=== PATIENT | female | born 1940 | race Caucasian/White ===

== ENCOUNTER → 2024-03-07 14:04 | Outpatient (REF) | payer MEDICARE, SELFPAY | LOC: RCS 14:04 | PROVIDERS: ATTENDING PHYSICIAN Internal Medicine Cardiovascular Disease; FAMILY PHYSICIAN Family Medicine | DX: R06.02 Shortness of breath (principal); R60.9 Edema, unspecified | CPT/HCPCS: 93306 ==

== ENCOUNTER 2024-07-29 10:22 | Emergency (ER) | payer MEDICARE, SELFPAY ==
[2024-07-29 10:24] VITALS: BP 141/67
--- NOTE | 2024-07-29 11:03 | ED.GENMED ---
History of Present Illness
General
Chief Complaint: Fall
Source: patient
Exam Limitations: none
Time Seen by Provider: 07/29/24 10:45
Nursing documentation reviewed up to this point in time: agreed with
History of Present Illness
History of Present Illness:
84-year-old female with history hypertension presenting 10 days following mechanical fall with persistent left knee pain. Patient states she sustained a trip and fall approximately 10 days ago landing on her left knee. Patient denies any loss of
consciousness. Patient is not on any blood thinners. Patient does have pain in her left knee worse with movement. Patient has been able to ambulate independently with mild discomfort. Patient denies any numbness/tingling in left lower extremity.
Patient denies any headache, neck pain, abdominal pain, or other extremity pain.
Patient has only been using CBD ointment for pain and knee.
Past History
Past History
ED Past Medical History: None and Other (chronic right shoulder pain with mildly limited ROM. Had MRI which showed a tear a couple of years ago but never addressed past then.)
ED Past Surgical History: None
Social History
Tobacco: Former smoker
Personal:
Living: alone
Employment: Employed ([employer])
Review of Systems
Review of Systems
Allergies reviewed?: Yes
All Other Systems: ROS reviewed and negative except as documented in HPI and ROS
Phy Exam
Physical Exam
Physical Exam:
Vitals: Patient's vital signs are stable. Afebrile
General: Patient is well appearing, no acute distress
Skin: Warm and dry, no rashes or lesions. No ecchymoses or abrasions.
Head: Normocephalic, atraumatic
Throat: Protecting airway. Trachea midline
Neck: Normal ROM, no cervical spine tenderness. No midline spinal tenderness
Cardiac: Regular rate
Pulm: No apparent respiratory distress. Lungs clear bilaterally
Abdomen: Abdomen soft and nontender. Nondistended
Extremities: Tenderness of medial aspect of left knee just inferior to patella. No joint effusion. No medial/lateral joint line tenderness of left knee. Patient has excellent active range of motion in left knee including flexion extension.
Patient's left hip and left ankle atraumatic and nontender with full range of motion. Left lower extremity neurovascularly and with palpable popliteal, PT, and DP pulses. Right lower extremity atraumatic and nontender full range of motion.
Neuro: Grossly intact
Psychiatric: Normal affect.
Course
Orders/Labs/Results
Orders:
Orders
07/29/24 10:28
CR Knee - Left 4 Or More View* Urgent
Comment:
Reason For Exam: injury/pain
Vital Signs
Initial and Last Documented VS:
Initial Vital Signs
Temp Pulse Resp BP Pulse Ox
98.2 F 61 18 141/67 96
07/29/24 10:24 07/29/24 10:24 07/29/24 10:24 07/29/24 10:24 07/29/24 10:24
Last Documented Vital Signs
Temp Pulse Resp BP Pulse Ox
98.2 F 61 18 141/67 96
07/29/24 10:24 07/29/24 10:24 07/29/24 10:24 07/29/24 10:24 07/29/24 10:24
MDM/Problems Addressed
Differential Diagnosis Includes:
Not limited to: Patellar fracture, patellar subluxation, tibial plateau fracture, meniscal injury, other knee sprain/ligamentous injury, etc.
MDM/Problems Addressed:
84-year-old female presenting 2 weeks following mechanical fall with persistent left knee pain. Pain with ambulating. No other associated injuries or concerns. Vital stable. Exam does show mild tenderness just inferior to left patella aT medial
aspect of knee. Patient has excellent range of motion left knee. Left lower extremity neurovascularly intact. No evidence of other extremity/traumatic injuries. Head atraumatic and nontender. C-spine nontender. No focal neurologic deficits.
Patient not on any blood thinners. Given fall was 10 days ago�low suspicion for acute intracranial abnormality. X-ray of left knee was obtained without any acute abnormalities. Suspect likely knee contusion versus knee sprain/ligamentous injury.
Advised rest, ice, elevation. Patient will follow with orthopedics for further evaluation/management and possibly further imaging. Patient comfortable with plan. Patient seen with attending physician
Chronic conditions affecting care:
Hypertension
Acute Exacerbation and/or Progression of Chronic Illness:
Acutely hypertensive
*Radiology
Radiology exam reviewed: preliminary read by ED provider and radiology read reviewed (No acute fracture or dislocation)
*Pulse Oximetry
Patient hypoxic: no
*EKG
Interpreted by ED Provider?: NA
*Retail Worker Interpretation
Rate: Retail Worker- N/A
*Critical Care Note
Total Time (30-74mins, 75-104mins- exclusive of procedures): Not Applicable
ED Attending Note
-
Portions of this chart may have been created with voice recognition software.� Occasional wrong word or��sound alike� substitutions may have occurred due to the inherent limitations of voice recognition software.
Discharge Plan
Departure
Patient Disposition: Home (Routine Discharge)
Date of Disposition: 07/29/24
Time of Disposition: 11:11
Patient with high blood pressure during this ER visit?: Yes
Condition: Good
Covid-19: Not Applicable
Discharge Problem:
Injury of knee, left
Instructions: Knee Pain ED, BLOOD PRESSURE
Prescriptions:
No Action
latanoprost 0.005 % Drops
1 drp RIGHT EYE QPM
ascorbic acid (vitamin C) [Vitamin C] 1,000 mg Tablet
1 g PO DAILY
timolol 0.25 % Drops
1 drp RIGHT EYE BID
vitamin B complex Capsule
1 cap PO DAILY
zinc 50 mg Capsule
50 mg PO DAILY
cholecalciferol (vitamin D3) [Vitamin D3] 25 mcg (1,000 unit) Tablet
25 mcg PO DAILY
biotin 5,000 mcg Tablet, Sublingual
5,000 mcg SUBLINGUAL DAILY
mupirocin 2 % ointment
1 applic intranasal BID Qty: 1 0RF
aspirin 325 mg Tablet
325 mg PO DAILY Qty: 30 0RF
Rx Instructions:
Take daily x4 weeks for blood clot prevention.
celecoxib 200 mg Capsule
200 mg PO DAILY Qty: 14 0RF
Rx Instructions:
Take with food.
DO NOT take within 2 hours of Aspirin post-surgery.
famotidine 20 mg Tablet
20 mg PO HS Qty: 14 0RF
Rx Instructions:
Take nightly while on Celebrex.
dexamethasone 4 mg Tablet
4 mg PO Q12 Qty: 5 0RF
docusate sodium 100 mg Capsule
100 mg PO BID Qty: 30 0RF
sennosides [senna] 8.6 mg Tablet
17.2 mg PO BID Qty: 30 0RF
acetaminophen [Acetaminophen Extra Strength] 500 mg tablet
1,000 mg PO Q6H Qty: 60 0RF
Rx Instructions:
DO NOT exceed >4000 mg daily.
oxycodone 5 mg tablet
5 mg PO Q6H PRN (Reason: moderate-severe pain) Qty: 30 0RF
Rx Instructions:
1 tab for moderate pain, 2 if severe.
Dx total joint. Ongoing therapy.
ondansetron 4 mg tablet,disintegrating
4 mg PO Q6H PRN (Reason: nausea and vomiting) Qty: 20 0RF
Rx Instructions:
Take 1/2 hour prior to Oxycodone if experiencing recurrent nausea.
amlodipine 10 mg Tablet
10 mg PO DAILY Qty: 1 0RF
Rx Instructions:
HOLD if systolic blood pressure <130 while on Oxycodone.
Referrals:
Marcos Armstrong MD [Family Provider] -
Mina Trejo MD [Active] - Next open appointment
Activity Restrictions/Additional Instructions:
RETURN TO THE EMERGENCY DEPARTMENT WITH ANY FEVERS, NUMBNESS/TINGLING IN RIGHT LEG, INTRACTABLE PAIN, INABILITY TO AMBULATE, OR ANY OTHER CONCERNS
-As discussed - the xray of your knee showed no evidence of fracture or dislocation.
-You should continue to rest, ice, and elevate your left knee. Take tylenol as needed for discomfort
-Follow-up with orthopedics for further evaluation/management. You may require further imaging.
Monitor your symptoms closely and return to the emergency department with any acute worsening/new symptoms.
Interventions
Interventions:
*Risk Screen - Suicide Last Done: 07/29/24 10:24
*General Assessment Last Done: 07/29/24 10:53
*Neglect/Abuse Screening Last Done: 07/29/24 10:24
*ED COVID-19 Vaccine History Last Done: 07/29/24 10:24
*Nursing Disposition Last Done: 07/29/24 11:25
ED-Musculoskeletal Assessment Last Done: 07/29/24 10:53
ED- Neurological Assessment Last Done: 07/29/24 10:53
ED-Skin Assessment Last Done: 07/29/24 10:53
Discharge Date and Time
Discharge Date/Time: 07/29/24 11:25
Print Language: [email or web address]
== END 2024-07-29 11:25 | disposition home or self-care (01) ==
LOC: EMR 10:22
PROVIDERS: EMERGENCY PHYSICIAN Emergency Medicine; FAMILY PHYSICIAN Family Medicine; OTHER PHYSICIAN Orthopaedic Surgery
DX: S89.92XA Unspecified injury of left lower leg, initial encounter (principal); W01.0XXA Fall on same level from slipping, tripping and stumbling without subsequent striking against object, initial encounter; Z87.891 Personal history of nicotine dependence; I10 Essential (primary) hypertension
CPT/HCPCS: 99283; 73564

== ENCOUNTER → 2025-04-21 13:15 | Outpatient (REF) | payer OTHER, SELFPAY | LOC: WDC 13:15 | PROVIDERS: ATTENDING PHYSICIAN Family Medicine | DX: Z12.31 Encounter for screening mammogram for malignant neoplasm of breast (principal); M85.9 Disorder of bone density and structure, unspecified | CPT/HCPCS: 77063; 77067; 77080 ==